=== PATIENT | female | born 1985 | race Caucasian/White ===

== ENCOUNTER 2017-01-18 17:51 | Emergency (ER) | payer OTHER ==
[2017-01-18] MEDS ORDERED: IV NORMAL SALINE 1,000ML 1,000 ML IV ONE (18:30)
[2017-01-18] MEDS ORDERED: KETOROLAC 30 MG/ML VIAL. IV ONE (18:45)
[2017-01-18] MEDS ORDERED: methylPREDNISolone SOD SUCC PF 125 MG/2 ML VIAL. IV ONE (18:45)
[2017-01-18 18:49] LABS: BASO # 0.1 x10^3/uL (0.0-0.2); BASO % 1 % (0-3); EOS # 0.1 x10^3/uL (0.0-0.7); EOS % 1 % (0-3); HEMATOCRIT 42.4 % (36.0-47.0); HEMOGLOBIN 14.3 g/dL (12.0-15.5); LYMPH # 4.1 x10^3/uL (1.0-4.8); LYMPH % 35 % (24-48); MEAN CORPUSCULAR HEMOGLOBIN 31 pg (25-35); MEAN CORPUSCULAR HGB CONC 34 g/dL (31-37); MEAN CORPUSCULAR VOLUME 92 fL (79-100); MONO # 0.7 x10^3/uL (0.0-1.1); MONO % 6 % (0-9); NEUT # 6.6 x10^3uL (1.8-7.7); NEUT % 57 % (31-73); PLATELET COUNT 276 x10^3/uL (140-400); RED CELL DISTRIBUTION WIDTH 12.5 % (11.5-14.5); WHITE BLOOD COUNT 11.6 x10^3/uL (4.0-11.0)
[2017-01-18 18:55] LABS: ALBUMIN 3.9 g/dL (3.4-5.0); ALBUMIN/GLOBULIN RATIO 0.9 (1.0-1.7); CALCIUM 9.5 mg/dL (8.5-10.1); CREATININE 0.8 mg/dL (0.6-1.0); GFR 83.7; POTASSIUM 3.5 mmol/L (3.5-5.1); TOTAL BILIRUBIN 0.3 mg/dL (0.2-1.0); TOTAL PROTEIN 8.2 g/dL (6.4-8.2)
[2017-01-18] MEDS ORDERED: IOHEXOL 300 MG/ML 75 ML VIAL. IV ONE (19:00)
--- NOTE | 2017-01-18 19:36 | RAD ---
CT ANGIOGRAPHY CHEST dated 01/18/2017 6:35 PM Indication:..CHEST PAIN, R/O PE NO HX OF HEART/LUNG PROBLEMS, NO SURGERIES
NEGATIVE
GAVE OMNI 300 75ML IV - TOLERATED WELL
NO PREVIOUS CT FOR COMPARISON. Comparison: No comparison is available. Technique: Contiguous axial imaging of the chest performed following the intravenous administration of 75 cc Omnipaque 300. Study was performed as dedicated PE protocol with thin cut coronal MIPS 3-D reconstruction. One or more of the following individualized dose reduction techniques were utilized for this examination: 1. Automated exposure control 2. Adjustment of the mA and/or kV according to patient size 3. Use of iterative reconstruction technique Findings: Contrast bolus is adequate. No evidence of central, lobar or segmental pulmonary embolus. Subsegmental branches are not well evaluated based on technique. Heart size within normal limits. No pericardial effusion. No mediastinal, hilar or axillary lymphadenopathy. Thyroid gland unremarkable. Central airways are patent. Evidence of prior left upper lobe wedge resection. Lungs are otherwise clear. No consolidation or pleural effusion. No pneumothorax. Limited images of upper abdomen unremarkable. No acute bony abnormality. IMPRESSION: 1. No evidence of central, lobar or segmental pulmonary embolus. 2. Clear lungs. 3. Status post left upper lobe wedge resection. Electronically signed by: Chadwick Marquez MD (01/18/2017 7:32 PM) [id number]
[2017-01-18] MEDS ORDERED: PRED50TA PO (20:04)
--- NOTE | 2017-01-18 20:05 | PHYS DOC ---
Past History Past Medical History: Other (rheumatoid arthritis) Past Surgical History: Other (longer wedge resection) Smoking: Non-smoker Alcohol Use: None Drug Use: None Adult General Chief Complaint Chief Complaint: CHEST PAIN HPI HPI Patient is a 31-year-old female who has a history significant for rheumatoid arthritis status post a wedge resection of her left lung who presents here today complaining of chest pain. Patient has no history significant for hypertension diabetes lung liver or kidney problems. Patient has had no prior DVTs or PEs. Patient is on control pills. Patient does not smoke drink or do any drugs. Patient is allergic to any medications. Patient does have a history of pleurisy in the past secondary to her rheumatoid arthritis. Patient has any fevers shakes chills nausea vomiting diarrhea cough cold runny nose. Patient denies any swelling to her cast. Patient has any hemoptysis. Patient reports that she had a HIDA scan in the past which showed for function and gallbladder. Patient reports that the shortness of breath that she has is secondary to discomfort which takes a deep breath in. Patient reports he symptoms been off her proximal 2-3 month but the been gradually getting worse. She spoke to her steel rule die maker apprentice and he recommended that she come to the ER for further evaluation of her discomfort. Review of systems: Constitutional: Denies fever or chills Eyes: Denies change in visual acuity, redness, or eye pain HENT: Denies nasal congestion or sore throat Physical exam: All other systems were reviewed and found to be within normal limits, except as documented in this note. Constitutional: Well developed, well nourished, no acute distress, non-toxic appearance. HENT: Normocephalic, atraumatic, bilateral external ears normal, oropharynx moist, no oral exudates, nose normal. Eyes: PERRLA, EOMI, conjunctiva normal, no discharge. Neck: Normal range of motion, no tenderness, supple, no stridor. Cardiovascular:Heart rate regular rhythm, Lungs & Thorax: Bilateral breath sounds clear to auscultation Abdomen: Bowel sounds normal, soft, no tenderness, no masses, no pulsatile masses. Skin: Warm, dry, no erythema, no rash. Back: No tenderness, no CVA tenderness. Extremities: No tenderness, no cyanosis, no clubbing, ROM intact, no edema. Neurologic: Alert and oriented X 3, normal motor function, normal sensory function, no focal deficits noted. Psychologic: Affect normal, judgement normal, mood normal. Patient's ER physical exam is significant for a completely normal exam. Patient has no reproducible tenderness to palpation to her anterior chest wall. Patient reports the pain is only reproducible when she takes a deep breath in. Patient reports that she feels a bandlike discomfort around his chest which takes a deep breath in. Patient has no Jernigan sign. Patient has no split S2. Patient has no RV heave. Patient has no wheezing rales or rhonchi. Patient has no rub. Assessment and plan: CTA: Reveals no acute pathology. No pulmonary embolism noted. This is a 31-year-old female who presents here today with chest discomfort. Patient's clinically hemodynamically stable at this time. Patient's ER workup is been negative for any acute cause to this pain. Patient was given Toradol and steroids to assist her with her discomfort. I discussed with the patient that we'll give her a short burst course of steroids in case it is pleurisy secondary to her rheumatoid arthritis to see this might help her discomfort. I have strongly recommended that she follow-up with a steel rule die maker apprentice for further evaluation of this pain and discomfort. Review of Systems Review of Systems Constitutional: Denies fever or chills [] Eyes: Denies change in visual acuity, redness, or eye pain [] HENT: Denies nasal congestion or sore throat [] Respiratory: Denies cough or shortness of breath [] Cardiovascular: No additional information not addressed in HPI [] GI: Denies abdominal pain, nausea, vomiting, bloody stools or diarrhea [] : Denies dysuria or hematuria [] Musculoskeletal: Denies back pain or joint pain [] Integument: Denies rash or skin lesions [] Neurologic: Denies headache, focal weakness or sensory changes [] Endocrine: Denies polyuria or polydipsia [] All other systems were reviewed and found to be within normal limits, except as documented in this note. Current Medications Current Medications Current Medications Medications (Trade) Dose Ordered Sig/Emmanuelle Start Time Stop Time Status Last Admin Dose Admin Iohexol (Omnipaque 300 Mg/ml) 75 ml 1X ONCE 01/18/17 19:00 01/18/17 19:01 DC 01/18/17 19:07 75 ML Ketorolac Tromethamine (Toradol) 30 mg 1X ONCE 01/18/17 18:45 01/18/17 18:46 DC 01/18/17 18:45 30 MG Methylprednisolone Sodium Succinate (SOLU-Medrol 125MG VIAL) 125 mg 1X ONCE 01/18/17 18:45 01/18/17 18:46 DC 01/18/17 18:45 125 MG Sodium Chloride 1,000 ml @ 1,000 mls/hr 1X ONCE 01/18/17 18:30 01/18/17 19:29 DC 01/18/17 18:21 1,000 MLS/HR Allergies Allergies Allergies Coded Allergies Type Severity Reaction Last Updated Verified No Known Drug Allergies 01/18/17 No Physical Exam Physical Exam Constitutional: Well developed, well nourished, no acute distress, non-toxic appearance. [] HENT: Normocephalic, atraumatic, bilateral external ears normal, oropharynx moist, no oral exudates, nose normal. [] Eyes: PERRLA, EOMI, conjunctiva normal, no discharge. [] Neck: Normal range of motion, no tenderness, supple, no stridor. [] Cardiovascular:Heart rate regular rhythm, no murmur [] Lungs & Thorax: Bilateral breath sounds clear to auscultation [] Abdomen: Bowel sounds normal, soft, no tenderness, no masses, no pulsatile masses. [] Skin: Warm, dry, no erythema, no rash. [] Back: No tenderness, no CVA tenderness. [] Extremities: No tenderness, no cyanosis, no clubbing, ROM intact, no edema. [] Neurologic: Alert and oriented X 3, normal motor function, normal sensory function, no focal deficits noted. [] Psychologic: Affect normal, judgement normal, mood normal. [] Current Patient Data Vital Signs Vital Signs Date Time Temp Pulse Resp B/P (MAP) Pulse Ox O2 Delivery O2 Flow Rate FiO2 01/18/17 17:51 98.0 72 18 98 Room Air Lab Results Laboratory Tests Test 01/18/17 18:18 01/18/17 19:59 White Blood Count 11.6 x10^3/uL (4.0-11.0) H Red Blood Count 4.60 x10^6/uL (3.50-5.40) Hemoglobin 14.3 g/dL (12.0-15.5) Hematocrit 42.4 % (36.0-47.0) Mean Corpuscular Volume 92 fL (79-100) Mean Corpuscular Hemoglobin 31 pg (25-35) Mean Corpuscular Hemoglobin Concent 34 g/dL (31-37) Red Cell Distribution Width 12.5 % (11.5-14.5) Platelet Count 276 x10^3/uL (140-400) Neutrophils (%) (Auto) 57 % (31-73) Lymphocytes (%) (Auto) 35 % (24-48) Monocytes (%) (Auto) 6 % (0-9) Eosinophils (%) (Auto) 1 % (0-3) Basophils (%) (Auto) 1 % (0-3) Neutrophils # (Auto) 6.6 x10^3uL (1.8-7.7) Lymphocytes # (Auto) 4.1 x10^3/uL (1.0-4.8) Monocytes # (Auto) 0.7 x10^3/uL (0.0-1.1) Eosinophils # (Auto) 0.1 x10^3/uL (0.0-0.7) Basophils # (Auto) 0.1 x10^3/uL (0.0-0.2) D-Dimer (Shital) 0.93 mg/L (0.00-0.50) H Sodium Level 139 mmol/L (136-145) Potassium Level 3.5 mmol/L (3.5-5.1) Chloride Level 103 mmol/L (98-107) Carbon Dioxide Level 27 mmol/L (21-32) Anion Gap 9 (6-14) Blood Urea Nitrogen 12 mg/dL (7-20) Creatinine 0.8 mg/dL (0.6-1.0) Estimated GFR (Cockcroft-Gault) 83.7 BUN/Creatinine Ratio 15 (6-20) Glucose Level 89 mg/dL (70-99) Calcium Level 9.5 mg/dL (8.5-10.1) Total Bilirubin 0.3 mg/dL (0.2-1.0) Aspartate Amino Transferase (AST) 14 U/L (15-37) L Alanine Aminotransferase (ALT) 20 U/L (14-59) Alkaline Phosphatase 96 U/L (46-116) Total Protein 8.2 g/dL (6.4-8.2) Albumin 3.9 g/dL (3.4-5.0) Albumin/Globulin Ratio 0.9 (1.0-1.7) L POC Urine HCG, Qualitative hcg negative (Negative) EKG EKG [] Radiology/Procedures Radiology/Procedures [] Course & Med Decision Making Course & Med Decision Making Pertinent Labs and Imaging studies reviewed. (See chart for details) [] Dragon Disclaimer Dragon Disclaimer This electronic medical record was generated, in whole or in part, using a voice recognition dictation system. Departure Departure: Impression: Primary Impression: Nonspecific chest pain Additional Impressions: Pleurisy Rheumatoid arthritis Disposition: HOME, SELF-CARE Condition: IMPROVED Referrals: IVANA SAHU DO (PCP) Patient Instructions: Chest Pain (Nonspecific), Pleurisy Additional Instructions: The etiology of your chest discomfort has not been determined in the ER. The pain that you describing sounds likely secondary to pleurisy. We will trial a short course of prednisone to see if that makes her feel any better. He may also take Tylenol or ibuprofen to assist with the discomfort. Please follow-up with her steel rule die maker apprentice within the next week for reevaluation of the symptoms are not resolved. Scripts Prednisone (PREDNISONE) 50 Mg Tablet 1 TAB PO DAILY, #5 TAB Prov: AILYN BUCK MD 01/18/17 Problem Qualifiers AILYN BUCK MD Jan 18, 2017 20:05
[2017-01-18 20:25] VITALS: BP 126/68
== END 2017-01-18 20:25 | disposition home or self-care (01) ==
LOC: ER 17:59
DX: R09.1 Pleurisy (principal); M06.9 Rheumatoid arthritis, unspecified
CPT/HCPCS: 36415; 71275; 80053; 81025; 85025; 85379; 96361; 96374; 96375; 99285; J1885; J2930; Q9967; J7030